=== PATIENT | male | born 1955 | race Hispanic/Latino ===

== ENCOUNTER → 2021-06-22 | Outpatient (CLI) | payer MEDICARE ==
[~2021-06-22] MED LIST: BRIM5DRO4 OU; CETI10TA57 PO; CHOL200013 PO; DORZ10DR10 OU; LATA2.5D14 OU; METF-446 PO; SILO8CAP2 PO; SIMV-43 PO; TUMS PO; [UNRECOGNIZED DRUG - OTHER] PO
== END | disposition home or self-care (01) ==
LOC: OIH 08:41
PROVIDERS: ATTEND Internal Medicine
DX: Q25.46 Tortuous aortic arch (principal); R91.8 Other nonspecific abnormal finding of lung field
CPT/HCPCS: 71046

== ENCOUNTER 2023-09-03 10:08 | Emergency (ER) | payer OTHER ==
[~2023-09-03] VITALS: Ht 172.7 cm; Wt 95.3 kg
[~2023-09-03 10:08] MED LIST changes: +ACET-66 PO; +AEC81 PO; +ALBU18HF7 IH; -BRIM5DRO4 OU; -CETI10TA57 PO; -DORZ10DR10 OU; +EZET10TA48 PO; -LATA2.5D14 OU; +LISI5TAB21 PO; +LORA10TA7 PO; +ROSU20TA73 PO; -SILO8CAP2 PO; -SIMV-43 PO; +TAMS-1 PO; -TUMS PO; -[UNRECOGNIZED DRUG - OTHER] PO
[2023-09-03 10:36] LABS: APPEARANCE,URINE CLEAR (CLEAR); BILIRUBIN,URINE NEGATIVE (NEGATIVE); COLOR,URINE LIGHT-YELLOW (YELLOW); GLUCOSE, URINE (UA) NEGATIVE (NEGATIVE); KETONES,URINE NEGATIVE (NEGATIVE); LEUKOCYTE ESTERASE ,URINE NEGATIVE Leu/uL (NEGATIVE); NITRATE,URINE NEGATIVE (NEGATIVE); OCCULT BLOOD,URINE NEGATIVE (NEGATIVE); PH,URINE 6.5 (5.0-8.0); PROTEIN,URINE 20 mg/dL (NEGATIVE); UROBILINOGEN,URINE 0.2 mg/dL (0.2-1.0)
[2023-09-03 10:36] LABS: HEMATOCRIT 40.2 % (42-54); MEAN CORPUSCULAR HEMOGLOBIN 28.9 pg (27.0-33.0); MEAN CORPUSCULAR HGB CONC 33.3 g/dL (32.0-36.0); MEAN CORPUSCULAR VOLUME 86.6 fL (79-99); RED BLOOD CELL COUNT(AUTO) 4.64 MIL/uL (4.50-6.20); RED CELL DISTRIBUTION WIDTH 13.3 % (11.0-15.5); WHITE BLOOD COUNT (AUTO) 9.7 K/uL (4.8-10.8)
[2023-09-03 10:46] LABS: POTASSIUM 4.3 mmol/L (3.5-5.1)
[2023-09-03 10:50] LABS: ADD UA MICROSCOPIC YES
[2023-09-03 10:50] LABS: ALBUMIN 3.8 g/dL (3.5-5.0); BILIRUBIN,TOTAL 0.5 mg/dL (0.2-1.0); TOTAL PROTEIN, SERUM 7.2 g/dL (6.0-8.3)
[2023-09-03 10:52] LABS: MUCUS,URINE RARE LPF (None Seen); WBC,URINE 0-1 /HPF (0-1)
[2023-09-03] MEDS ORDERED: MECLIZINE HCL 25 MG TABLET PO ONE (11:30)
[2023-09-03] MEDS ORDERED: MECL-302 PO (14:22)
[2023-09-03 14:38] VITALS: BP 142/84; PULSE 78; RESP 18; O2SAT 98
== END 2023-09-03 14:39 | disposition home or self-care (01) ==
LOC: EDH 10:08
DX: H81.10 Benign paroxysmal vertigo, unspecified ear (principal); I10 Essential (primary) hypertension; E11.9 Type 2 diabetes mellitus without complications; E78.5 Hyperlipidemia, unspecified; Z79.84 Long term (current) use of oral hypoglycemic drugs; Z79.899 Other long term (current) drug therapy
CPT/HCPCS: 36415; 80053; 81001; 85027; 93005

== ENCOUNTER → 2024-07-08 | Outpatient (CLI) | payer OTHER ==
[~2024-07-08] MED LIST changes: +MECL-302 PO
== END | disposition home or self-care (01) ==
LOC: SHCH 08:01
PROVIDERS: ATTEND Internal Medicine Cardiovascular Disease
DX: I77.9 Disorder of arteries and arterioles, unspecified (principal); I25.10 Atherosclerotic heart disease of native coronary artery without angina pectoris
CPT/HCPCS: 93880

== ENCOUNTER 2025-04-09 10:35 | Emergency (ER) | payer OTHER ==
[~2025-04-09] VITALS: Ht 172.7 cm; Wt 97.1 kg
[~2025-04-09 10:35] MED LIST changes: -ROSU20TA73 PO; +ROSU20TA98 PO; -TAMS-1 PO; +TAMS-55 PO
[2025-04-09 11:11] LABS: BASOPHILS # (AUTO) 0.04 K/uL (0.00-0.20); BASOPHILS % (AUTO) 0.7 % (0.0-5.0); EOSINOPHILS # (AUTO) 0.06 K/uL (0.00-0.70); EOSINOPHILS % (AUTO) 1.1 % (0.0-8.0); HEMATOCRIT 41.4 % (42-54); IMMATURE GRANULOCYTE ABSOLUTE 0.02 K/uL (0-1); LYMPHOCYTES # (AUTO) 1.8 K/uL (1.0-4.8); LYMPHOCYTES % (AUTO) 32.2 % (21.0-51.0); MEAN CORPUSCULAR HEMOGLOBIN 29.4 pg (27.0-33.0); MEAN CORPUSCULAR HGB CONC 33.3 g/dL (32.0-36.0); MEAN CORPUSCULAR VOLUME 88.1 fL (79-99); MONOCYTES # (AUTO) 0.7 K/uL (0.1-1.0); MONOCYTES % (AUTO) 11.8 % (3.0-13.0); NEUTROPHILS # (AUTO) 3.1 K/uL (1.8-7.7); NEUTROPHILS % (AUTO) 53.8 % (40.0-77.0); PLATELET COUNT (AUTO) 166 K/uL (130-400); RED CELL DISTRIBUTION WIDTH 13.8 % (11.0-15.5); WHITE BLOOD COUNT (AUTO) 5.7 K/uL (4.8-10.8)
[2025-04-09 11:18] LABS: POTASSIUM 3.7 mmol/L (3.5-5.1)
--- NOTE | 2025-04-09 11:30 | NUR ---
TROP-81 ERMD MADE AWARE, ORDER TO PLACE IN ED ROOM
[2025-04-09 11:36] LABS: B-TYPE NATRIURETIC PEPTIDE 148 pg/mL (0-100)
[2025-04-09] MEDS: ketOROlac 15MG/ML VIAL (15MG/ML) IV ONE (11:51)
--- NOTE | 2025-04-09 11:55 | EKG ---
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
--- NOTE | 2025-04-09 12:06 | ERN ---
General Chief Complaint: Chest Wall Pain Stated Complaint: CONSTIPATION Time Seen by MD: 10:47 History of Present Illness Initial Comments 69-year-old male who presents for cough congestion pleuritic type chest pain. Patient reports for the last two weeks he has had sore throat cough congestion and on and off fevers. He has had a productive cough. No vomiting. No diarrhea. No abdominal pain. He reports he went to his primary doctor, he was prescribed an inhaler which he has been using. He still continues with cough an d discomfort. He describes the chest pain is all over the chest wall increasing with deep respiration and he associated with a cough. Allergies: Coded Allergies: No Known Allergies (Unverified Allergy, 07/03/13) Home Meds Active Scripts Nebulizer (Nebulizer) 1 Each Each, EACH , #1 Prov:RYAN GAYTAN DO 04/09/25 Promethazine HCl/Codeine (Promethazine-Codeine Syrup) 6.25 Mg-10 Mg/5 Ml Syrup, 5 ML PO Q4HPRN PRN for cough, #120 ML 0 Refills Prov:RYAN GAYTAN DO 04/09/25 Albuterol Sulfate (Albuterol Sulfate) 2.5 Mg/3 Ml (0.083 %) Vial.neb, 1 VIAL NEB Q4HPRN PRN for wheezing, #25 EA 0 Refills Prov:RYAN GAYTAN DO 04/09/25 Azithromycin (Azithromycin) 250 Mg Tablet, 1 TAB PO AD for 5 Days, #6 TAB 0 Refills 2 the first day followed by 1 for days 2-5 Prov:RYAN GAYTAN DO 04/09/25 Meclizine HCl (Meclizine HCl) 25 Mg Tablet, 25 MG PO TID for vertigo, #30 TAB 0 Refills Prov:FITO NAGEL [employer] PROFESSION[employer] 09/03/23 Reported Medications Rosuvastatin Calcium (Rosuvastatin Calcium) 20 Mg Tablet, 20 MG PO HS, TAB 05/31/23 Acetaminophen (Tylenol) 500 Mg Tab, 500 MG PO Q4PRN PRN for PAIN, TAB 05/31/23 Albuterol Sulfate (Ventolin Hfa) 18 Gm Hfa.aer.ad, 2 PUFF IH TID PRN for SHORTNESS OF BREATH, INHALER 05/31/23 Loratadine (Loratadine) 10 Mg Tablet, 10 MG PO HS, TAB 05/31/23 Tamsulosin HCl (Flomax) 0.4 Mg Cap.er.24h, 0.4 MG PO HS, CAPSULE.DR 05/31/23 Ezetimibe (Ezetimibe) 10 Mg Tablet, 10 MG PO HS, TAB 05/31/23 Lisinopril (Lisinopril) 5 Mg Tablet, 5 MG PO HS, TAB 05/31/23 Aspirin (ASPIRIN 81 MG ECTAB) 81 Mg Ectab, 81 MG PO DAILY, TAB.EC 05/31/23 Cholecalciferol (Vitamin D3) (Vitamin D3) 2,000 Unit Capsule, 2000 UNIT PO HS, CAP 08/25/16 Metformin HCl (Metformin HCl) 1,000 Mg Tablet, 1000 MG PO BIDMEALS, TAB 08/25/16 Past Medical History Past Medical History: Diabetes-Type II, High Cholesterol, Hypertension Past Surgical History: Other Surgical History Other: PROSTAGE SURGERY ROS Dictation CONSTITUTIONAL: No chills, no fever, no weakness, no diaphoresis, no malaise. HEAD/FACE: No signs of trauma. EENT: Rhinorrhea, nasal congestion RESPIRATORY: Cough pleuritic type chest pain CARDIOVASCULAR: No chest pain, no edema, no palpitations, no syncope. GASTROINTESTINAL/ABDOMINAL: No abdominal pain, no constipation, no diarrhea, no nausea, no vomiting. GENITOURINARY: No abnormal discharge, no dysuria, no frequent urination, no hematuria. No complaints of pain in the genitals. MUSCULOSKELETAL: No back pain, no gout, no joint pain, no joint swelling, no muscle pain, no muscle stiffness, no neck pain. INTEGUMENTARY: No change in color, no change in hair/nails, no dryness, no lesion, no lumps, no rash. NEUROLOGICAL/PSYCH: No anxiety, not depressed, no emotional problem, no headache, no numbness, no pre-existing deficit, no history of seizures, no tremors, no weakness. HEMATOLOGIC/LYMPHATIC: Not anemic, no history of blood clots, no apparent blee ding, no bruising, glands not swollen. All Systems Negative, Except as Noted. Physical Exam Physical Exam Dictation VITAL SIGNS: Reviewed. GENERAL APPEARANCE: Alert, oriented x3, no acute distress. HEAD AND FACE: Non-traumatic. EYES: PERRL, pink conjunctivas, eyelid no trauma, anterior chamber clear. EARS: Pinnas intact and no signs of trauma or erythema. Ear canals clear and no discharge. TMs no erythema. NOSE: No discharge, no bleeding. OROPHARYNX: Mouth normal, teeth no caries, tongue pink. Pharynx clear, no erythema. Tonsils no exudates, no abscesses noted. Mucous membrane moist. NECK: Supple, non-tender, no thyromegaly, no masses, no JVD, no bruits. BREAST: Deferred. CHEST: No tenderness, no crepitus, no paradoxical movement, no retractions. LUNGS: Clear, well-ventilated, symmetric, no rales, no wheezing, no rhonchi, no stridor, good breath sounds bilaterally. HEART: Regular rate, regular rhythm, no murmur, no gallops. VASCULAR: No peripheral edema. ABDOMEN: Soft, positive bowel sounds, nondistended, no guarding, nontender, no rebound, no masses no hepatomegaly, no splenomegaly, no Robin's sign, no hernias. RECTAL: Deferred. GENITAL: Deferred. NEUROLOGICAL: Normal speech, gross motor function intact, gross sensory function intact. MUSCULOSKELETAL: Neck nontender, full range of motion, back nontender, full range of motion. EXTREMITIES: Nontender, full range of motion. SKIN: Color pink, dry, no turgor, no rash, no lacerations, no abrasions, no contusions. LYMPHATICS: Deferred. Results Laboratory and Microbiology Lab and Micro Result Laboratory Tests Test 04/09/25 11:02 04/09/25 11:50 04/09/25 12:09 White Blood Count 5.7 K/uL (4.8-10.8) Red Blood Count 4.70 MIL/uL (4.50-6.20) Hemoglobin 13.8 g/dL (14.0-18.0) L Hematocrit 41.4 % (42-54) L Mean Corpuscular Volume 88.1 fL (79-99) Mean Corpuscular Hemoglobin 29.4 pg (27.0-33.0) Mean Corpuscular Hemoglobin Concent 33.3 g/dL (32.0-36.0) Red Cell Distribution Width 13.8 % (11.0-15.5) Platelet Count 166 K/uL (130-400) Mean Platelet Volume 10.3 fL (7.5-10.5) Immature Granulocyte % (Auto) 0.4 % (0-1) Neutrophils (%) (Auto) 53.8 % (40.0-77.0) Lymphocytes (%) (Auto) 32.2 % (21.0-51.0) Monocytes (%) (Auto) 11.8 % (3.0-13.0) Eosinophils (%) (Auto) 1.1 % (0.0-8.0) Basophils (%) (Auto) 0.7 % (0.0-5.0) Neutrophils # (Auto) 3.1 K/uL (1.8-7.7) Lymphocytes # (Auto) 1.8 K/uL (1.0-4.8) Monocytes # (Auto) 0.7 K/uL (0.1-1.0) Eosinophils # (Auto) 0.06 K/uL (0.00-0.70) Basophils # (Auto) 0.04 K/uL (0.00-0.20) Absolute Immature Granulocyte (auto 0.02 K/uL (0-1) Nucleated Red Blood Cells 0.0 % (0.0-0.19) Sodium Level 138 mmol/L (136-145) Potassium Level 3.7 mmol/L (3.5-5.1) Chloride Level 101 mmol/L (101-111) Carbon Dioxide Level 27 mmol/L (21-32) Blood Urea Nitrogen 10 mg/dL (7-18) Creatinine 1.0 mg/dL (0.5-1.3) Glomerular Filtration Rate Calc 81 mL/min (>90) Random Glucose 168 mg/dL (70-105) H Total Calcium 8.8 mg/dL (8.5-10.1) Troponin I High Sensitivity 81 ng/L (4-75) *H 75 ng/L (4-75) B-Type Natriuretic Peptide 148 pg/mL (0-100) H SARS-CoV-2 Antigen (Rapid) PRESUMPTIVE NEGATIVE MDM CC: Cough congestion and pleuritic chest pain Historian: Patient Comorbidities: Dyslipidemia hypertension diabetes Differential diagnosis: Pleuritic chest pain, pneumonia, pneumothorax, ACS, a Vital signs are stable, remained stable in the ER Chest x-ray per my independent interpretation shows mild vascular congestion but otherwise no acute abnormalities. Labs show normal CBC, chemistries unremarkable, initial troponin 82->75 baseline BNP stable Flu SARS negative Symptoms most consistent with pleuritic type chest pain, he is also has a productive cough and tightness and congestion, likely community-acquired pneumonia. Plan: DC with the antibioticsNickb Patient took this ED Course Orders Procedure Category Date Status Time 12 Lead Ekg Tracing- EKG 04/09/25 Complete Technical 10:38 Covid19 (Sars Antigen LAB 04/09/25 Complete Rapid) 10:52 Cbc With Differential LAB 04/09/25 Complete 10:52 B-Type Natriuretic LAB 04/09/25 Complete Peptide 10:52 Chest 1vw RAD 04/09/25 Resulted 10:52 Troponin I High LAB 04/09/25 Complete Sensitivity 10:52 Basic Metabolic Panel LAB 04/09/25 Complete 10:52 Ketorolac PHA 04/09/25 Complete Tromethamine 15mg/Ml 11:00 Troponin I High LAB 04/09/25 Complete Sensitivity 11:55 Albuterol 0.083% PHA 04/09/25 Complete 2.5mg/3ml (Proventil 12:30 Methylprednisolone PHA 04/09/25 Complete Succ 40mg (Solu-Medro 12:30 Ceftriaxone 1g Vial PHA 04/09/25 Complete (Rocephine 1g Inj) 13:00 Current Medications Medications (Trade) Dose Ordered Sig/Moon Route PRN Reason Start Time Stop Time Status Last Admin Dose Admin Albuterol Sulfate (Proventil 0.083% 2.5mg/3ml) 2.5MG ONCE ONCE IH 04/09/25 12:30 04/09/25 12:31 DC 04/09/25 13:09 Ceftriaxone Sodium (ROCEphine 1G INJ) 1 gm ONCE ONCE IVPB 04/09/25 13:00 04/09/25 13:01 DC 04/09/25 13:16 Ketorolac Tromethamine (toRADol) 15 mg ONCE ONCE IV 04/09/25 11:00 04/09/25 11:01 DC 04/09/25 11:51 Methylprednisolone Sodium Succinate (Solu-medROL 40MG) 40 mg ONCE ONCE IVP 04/09/25 12:30 04/09/25 12:31 DC 04/09/25 13:16 Vital Signs Date Time Temp Pulse Resp B/P (MAP) Pulse Ox O2 Delivery O2 Flow Rate FiO2 04/09/25 13:43 97.3 61 19 105/59 99 Room Air* 0 21 04/09/25 13:13 97.7 57 20 121/57 100 Room Air* 0 21 04/09/25 13:10 63 20 04/09/25 11:39 97.7 67 14 129/63 99 Room Air* 0 21 04/09/25 10:37 97.9 85 16 129/59 97 Room Air 0 DX & DISP Disposition: Discharge Departure Impression: Primary Impression: Community acquired pneumonia Condition: Stable Scripts Nebulizer (Nebulizer) 1 Each Each EACH MC, #1 Prov: RAYN GAYTAN DO 04/09/25 Promethazine HCl/Codeine (Promethazine-Codeine Syrup) 6.25 Mg-10 Mg/5 Ml Syrup 5 ML PO Q4HPRN PRN for cough, #120 ML 0 Refills Prov: RYAN GAYTAN DO 04/09/25 Albuterol Sulfate (Albuterol Sulfate) 2.5 Mg/3 Ml (0.083 %) Vial.neb 1 VIAL NEB Q4HPRN PRN for wheezing, #25 EA 0 Refills Prov: RYAN GAYTAN DO 04/09/25 Azithromycin (Azithromycin) 250 Mg Tablet 1 TAB PO AD for 5 Days, #6 TAB 0 Refills 2 the first day followed by 1 for days 2-5 Prov: RYAN GAYTAN DO 04/09/25 Additional Instructions: Your symptoms are consistent with community-acquired pneumonia. Your lab work is unremarkable. Your chest x-ray shows mild congestion. You can continue with the antibiotics (ciprofloxacin) and the inhaler that you are using. I have prescribed promethazine-codeine to use as needed for cough. This medi cation is a cough suppressant. Please note that it may make you drowsy. Use as needed. I have prescribed azithromycin. This is a 2nd antibiotic. Please take as prescribed. I have prescribed albuterol and a nebulizer machine. You can use this as needed every 4 hours for cough or wheezing. Please return to the emergency department if you have any concerns. Otherwise you can follow up with Dr. Hill as already planned. Referrals: ANGELIA HILL MD (PCP) RYAN GAYTAN DO April 09, 2025 12:06
[2025-04-09] MEDS ORDERED: NEBU-305 MC (12:48)
[2025-04-09] MEDS ORDERED: AZIT250T9 PO (12:48)
[2025-04-09] MEDS ORDERED: ALBU2.5V2 NEB (12:48)
[2025-04-09] MEDS ORDERED: CODE473S6 PO (12:48)
[2025-04-09] MEDS: ALBUTEROL 0.083% 2.5 MG/3 ML INH IH ONE (13:09)
[2025-04-09 13:10] VITALS: PULSE 63; RESP 20
[2025-04-09] MEDS: cefTRIAXone 1G VIAL IVPB ONE (13:16)
[2025-04-09] MEDS: Solu-medROL 40MG VIAL IVP ONE (13:16)
--- NOTE | 2025-04-09 13:31 | HMCIMG ---
CHEST 1VW HISTORY: Chest pain COMPARISON: 05/31/2023 FINDINGS: A frontal projection of the chest was obtained. Mild bilateral pulmonary infiltrates are seen may be related to mild pulmonary vascular congestion with possible superimposed pneumonitis. The heart is borderline enlarged. Degenerative changes are seen. No evidence of aortic calcification is seen. IMPRESSION: 1. Mild bilateral pulmonary infiltrates are seen may be related to mild pulmonary vascular congestion with possible superimposed pneumonitis.
[2025-04-09 13:43] VITALS: BP 105/59; PULSE 61; RESP 19; TEMP 97.4; O2SAT 99
--- NOTE | 2025-04-09 13:44 | NUR ---
DC PATIENT WAS DC'D BY DR GAYTAN TODAY, I DC'D PATIENTS IV WITH CATH STILL IN PLACE AND APPLIED 2X2 GAUZE WITH COBAN I EXPLAINED TO PATIENT TO FOLLOW UP WITH PCP, PROVIDED INFO BASED ON DIAGNOSIS, EXPLAINED NEW PRESCRIPTIONS AND HOW TO TAKE THEM AND ANSWERED ANY FURTHER QUESTIONS PATIENT AMBULATED OUT OF ED, ACCOMPANIED BY , NO COMPLICATIONS
== END 2025-04-09 13:45 | disposition home or self-care (01) ==
LOC: EDH 10:35
DX: J18.9 Pneumonia, unspecified organism (principal); E11.9 Type 2 diabetes mellitus without complications; E78.00 Pure hypercholesterolemia, unspecified; I10 Essential (primary) hypertension; Z79.82 Long term (current) use of aspirin; Z20.822 Contact with and (suspected) exposure to COVID-19
CPT/HCPCS: 99285; 96374; 96375; 71045; 87426; 84484 ×2; 80048; 83880; 85025; 36415; 93005; 94640; J1885; J2919; J0696